=== PATIENT | female | born 1995 | race Caucasian/White ===

== ENCOUNTER 2025-06-01 08:13 | Observation (INO) | payer MEDICAID, SELFPAY ==
--- NOTE | ~2025-06-01 | US_ITS ---
EXAMINATION: US abdomen limited DATE: 06/01/2025 11:16 INDICATION: Transaminitis. Elevated lipase. Positive Ferrell sign . TECHNIQUE: Multiple grayscale and Doppler ultrasound images of the abdomen were obtained. COMPARISON: CT dated 06/01/2025 FINDINGS: No abnormal fluid collections identified in the region of the pancreas which is not clearly visualized. Liver has normal contour, with a smooth surface. There is increased parenchymal echogenicity and coarsened echotexture consistent with diffuse hepatic steatosis. No liver lesion identified. No intrahepatic biliary duct dilation suspected. Portal venous flow was seen in the hepatopetal, normal direction and has normal Doppler waveform. The gallbladder is normal in appearance. There is no cholelithiasis. The common bile duct measures 3 mm, which is normal. Sonographic Ferrell sign was reported as positive by the grinder hardboard. Visualized portion of the right kidney demonstrates normal contour and axis tube with no hydronephrosis. The proximal to mid inferior vena cava is normal. IMPRESSION: 1. Positive sonographic Ferrell's sign but with normal-appearing gallbladder without cholelithiasis and without evident pericholecystic inflammatory stranding on prior CT to suggest acute cholecystitis and this is likely secondary to acute interstitial pancreatitis which is better appreciated on prior CT. Aside from the sonographic Ferrell's on there are no CT or ultrasound findings to suggest acute cholecystitis but if there is continued clinical concern could consider HIDA scan for further evaluation. 2. Prominent diffuse hepatic steatosis. No intra or extra hepatic biliary ductal dilation. Reviewed, dictated and finalized at location A. IMPRESSION: 1. Positive sonographic Ferrell's sign but with normal-appearing gallbladder wit hout cholelithiasis and without evident pericholecystic inflammatory stranding on prior CT to suggest acute cholecystitis and this is likely secondary to acut e interstitial pancreatitis which is better appreciated on prior CT. Aside from the sonographic Ferrell's on there are no CT or ultrasound findings to suggest acute cholecystitis but if there is continued clinical concern could consider H CESARIO scan for further evaluation. 2. Prominent diffuse hepatic steatosis. No intra or extra hepatic biliary ducta l dilation.
--- NOTE | ~2025-06-01 | CT_ITS ---
CT abdomen pelvis w con Clinical History: epig pain; hx pancreatitis; mildly elev lipase . Comparison: None Technique: Axial images lung bases to symphysis pubis IV contrast information not listed in PACS Coronal, sagittal reformats CT images acquired with automatic exposure control for dose reduction DLP: 211 mGy-cm Findings: Lung bases: Clear. Visualized heart and pericardium: Unremarkable. Liver: Markedly enlarged. Steatosis. Gallbladder: Unremarkable. Spleen: Unremarkable. Pancreas: Heterogeneous parenchyma within head with decreased enhancement. Ill- defined fat planes between pancreatic head and duodenum. Small fluid. Adrenal glands: Unremarkable. Kidneys: Right kidney- No hydronephrosis. No renal stones. Left kidney- No hydronephrosis. No renal stones. Left gonadal vein/renal vein shunt. Distal esophagus/stomach: Distal esophageal wall thickening/esophagitis. Small bowel loops: Normal caliber and wall thickness. Colon: Normal caliber and wall thickness. Normal RLQ appendix. Nodes: No enlarged nodes. Peritoneum: No ascites. No free air. Soft tissue abnormality upper mid abdomen left of midline, axial image 87, possibly arising from transverse colon or distal duodenum. Urinary bladder: Wall thickening. Intraluminal gas. Uterus: Unremarkable. Adnexa: No masses. Bones: No acute bony abnormality. Soft tissues: Unremarkable. Aorta: No aneurysm or dissection. IVC: Unremarkable. Main portal vein/SMV/splenic vein: Patent. Main portal vein dilated. Dilated IMV. IMPRESSION: 1. Probable pancreatitis. Reactive duodenitis. 2. Pancreatic head mass not excluded. Possibly merely changes of pancreatitis. Recommend MRI and/or endoscopic ultrasound. 3. Soft tissue mass left mesentery, possibly duodenal or colonic diverticulum. Malignancy not excluded. Recommend CT scan with oral contrast. 4. Severe hepatomegaly, with steatosis. 5. Portal hypertension. No ascites. 6. Urinary bladder wall thickening with intraluminal gas. Worrisome for cystitis. Reviewed, dictated and finalized at location R. IMPRESSION: 1. Probable pancreatitis. Reactive duodenitis. 2. Pancreatic head mass not excluded. Possibly merely changes of pancreatitis. Recommend MRI and/or endoscopic ultrasound. 3. Soft tissue mass left mesentery, possibly duodenal or colonic diverticulum. Malignancy not excluded. Recommend CT scan with oral contrast. 4. Severe hepatomegaly, with steatosis. 5. Portal hypertension. No ascites. 6. Urinary bladder wall thickening with intraluminal gas. Worrisome for cystit is.
[2025-06-01 08:20] VITALS: BP 130/95; PULSE 89; RESP 18; TEMP 36.9; O2SAT 100
--- OUTSIDE RECORDS SUMMARY | 2025-06-01 08:25 | XMS_ITS | Patient Health Record ---
Author Organization [facility] [place] Address [address] [facility] [address] [place] [address] Care Team Providers Care Copper Flotation Operator Name Role Phone Arnulfo Gallardo Unavailable [phone] Reason For Referral No Information Plan Of Treatment No Information Insurance Providers Payer Name Payer Address Payer Phone Subscriber Number Group Number Insured Name Patient Relationship to Insured Coverage Start Date Coverage End Date [facility] [address] [place] [address] [id number] NACHO THAKUR Self - patient is the insured
--- OUTSIDE RECORDS SUMMARY | 2025-06-01 08:25 | XMS_ITS | Clinical Summary ---
Author Organization [facility] Address [address] [place] [address] Care Team Providers Care Warehouse Distribution Manager Name Role Phone Unavailable Primary Care Provider Unavailabl e Source Comments [facility],non-owned Affiliates and Associated Physician Practices is amultiple site organization consisting of ambulatory clinics and hospital sitesin [place], [place], [place] and [place]. This disclosure is being madepursuant to the Care Everywhere program and may not contain all information available regarding this patient. Last updated 18[facility] Allergies Active Allergy Reactions Criticality Noted Date Comments Sulfa Drugs Urticaria Medium 02/25/2019 Medications * Be aware that medications may not be up to date on this document. Alwaysverify current medications with the patient. Amphetamine-Dext roamphetamine (ADDERALL PO) Take by mouth once daily Active Social History Tobacco Use Types Packs/Day Years Used Date Smoking Tobacco: Some Days Cigarettes Smokeless Tobacco: Never Tobacco Cessation:Ready to Q uit: No; Counseling Given: Yes Comments:4cigs/wk Alcohol Use Standard Drinks/Week Comments Yes 7 (1 standard drink = 0.6 oz pur e alcohol) Pt is nnps Comments No Sex and Gender Information Value Date Recorded Sex Assigned at Not on file Legal Sex Female 6:42 PM CDT Gender Identity Not on file Sexual Orientation Not on file Last Filed Vital Signs Vital Sign Reading Time Taken Comments Blood Pressure 116/74 12/18/2020 3:33 PM CDT Pulse 70 06/29/2019 5:10 PM PROJECT MANAGER FINANCE Temperature 36.6 C (97.9 F) 06/29/2019 5:10 PM PROJECT MANAGER FINANCE Respiratory Rate 16 06/29/2019 5:10 PM PROJECT MANAGER FINANCE Oxygen Saturation 98% 06/29/2019 5:10 PM PROJECT MANAGER FINANCE Inhaled Oxygen Concentration - - Weight 66.2 kg (146 lb) 12/18/2020 3:33 PM CDT Height 162.6 cm (5' 4) 12/18/2020 3:33 PM CDT Body Mass Index 25.06 12/18/2020 3:33 PM CDT Plan of Treatment Health Maintenance Due Date Last Done Comments HIV SCREENING 2009 HEPATITIS C SCREENING 07/03/2012 DTAP/TDAP/TD VACCINES (1 - Tdap) 2013 HEPATITIS B VACCINE (1 of 3 - 19+ 3-dose series) 2013 HPV VACCINE (1 - 3-dose SCDM series) 2021 DEPRESSION SCREENING 08/18/2024 COVID-19 VACCINE ( - 2023-2 5 season) 2025 INFLUENZA VACCINE (#1) 2025 ZOSTER VACCINE (1 of 2) 2044 HIB VACCINE Aged Out No longer eligi ble based on patient's age to complete this topic MENINGOCOCCAL (Group B) VACC INE SHARED DECISION-MAKING Aged Out No longer eligibl e based on patient's age to complete this topic MENINGOCOCCAL GROUPS A/C/Y/W VACCINE Aged Out No longer eligible b ased on patient's age to complete this topic PNEUMOCOCCAL VACCINE Aged Out No long er eligible based on patient's age to complete this topic
[2025-06-01 08:28] LABS: BEDSIDEPREGUCG Negative (Negative)
[2025-06-01 08:32] LABS: Hematocrit 38.8 % (37.0-47.0); Hemoglobin 13.5 g/dL (12.0-15.0); Immature Granulocyte Percent A 0.5 % (0-0.5); Lymphocytes Absolute Auto 1.01 K/mm3 (0.9-3.2); Mean Corpuscular HGB Conc 34.8 g/dl (32-36); Mean Corpuscular Hemoglobin 33.9 pg (26-34); Mean Corpuscular Volume 97.5 fl (80-100); Nucleated Red Blood Cells Absolute Auto 0.000 K/mm3 (0.0-0.012); Nucleated Red Blood Cells Perc 0.0 % (0.0-0.2); Platelet Count Result 173 k/mm3 (150-375); Red Blood Count 3.98 M/mm3 (4.2-5.4); White Blood Count 6.5 K/mm3 (4.5-10.0)
[2025-06-01 08:52] LABS: Alanine Aminotransferase 144 U/L (6-35); Albumin Level 4.6 g/dL (3.5-5.1); Alkaline Phosphatase 125 U/L (38-126); Anion Gap 14 mmol/L (4-12); Aspartate Amino Transferase 286 U/L (14-36); Bilirubin,Total 3.3 mg/dL (0.2-1.3); Blood Urea Nitrogen 4 mg/dL (7-17); Calcium 9.1 mg/dL (8.4-10.2); Carbon Dioxide 25 mmol/L (22-30); Chloride 98 mmol/L (98-107); Estimated CRCL calculation 158 ml/min; Estimated Glomerular Filt Rate > 60; Glucose 137 mg/dL (65-110); Lipase 466 U/L (23-300); Potassium 3.5 mmol/L (3.4-5.0); Sodium 137 mmol/L (137-145); Total Protein 9.0 g/dL (6.3-8.2)
[2025-06-01 08:53] LABS: Add Urine Microscopic? YES; Appearance Urine Turbid (Clear); Glucose Urine UA Negative (Negative); Leukocyte Esterase Ur 2+ LEU/UL (Negative); Nitrate Urine Positive (Negative); Specific Grav Ur 1.026 (1.001-1.035)
--- NOTE | 2025-06-01 09:58 | ED_ITS ---
HPI - Abdominal Pain General Chief Complaint: Abdominal Pain Stated Complaint: ABD PAIN LIKE PRIOR PANCREATITIS Time Seen by Provider: 06/01/25 08:36 Source: patient Mode of arrival: ambulatory Limitations: no limitations History of Present Illness HPI narrative: Patient presents with epigastric abdominal pain starting last night. History of pancreatitis, last episode 2 months ago and states this feels similar. Has had nausea and vomiting. Notes 1 episode of bright red bloody emesis but not coffee grounds. Also having shoulder pain. 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 Notes that she drank more than normal recently. Denies marijuana. No chest pain. No sick contacts. LBM yesterday. No diarrhea, constipation. Still has her gallbladder. No fevers or chills but notes when she vomits she becomes diaphoretic and clammy. Related Data Allergies Allergy/AdvReac Type Severity Reaction Status Date / Time Sulfa (Sulfonamide Allergy Unknown Hives Verified 06/01/25 13:24 Antibiotics) PMFSH Past Medical History Medical History History of pancreatitis Alcohol abuse Social History Social History Smoking status: Never smoker Alcohol intake: current Drinks per week: 2 Substance use: never Lack of Transportation: No Lack of Food: Never True Current Housing: I Have Housing Concerned About Future Housing: No Difficulty Paying Gas/Electric Bills: No Difficulty Paying for Meds: No Currently Unemployed: No Education: High School Diploma/GED Difficulty w/ Childcare or Family Care: No Occupation/Education: occupation Additional occupation/education comments: 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 EYES: Non injected, non icteric ENT: Nares clear, no rhinorrhea or epistaxis. Gross auditory acuity intact. NECK: Supple. No meningismus. CHEST: Speaking in full sentences. No respiratory distress. HEART: Regular rate and rhythm. . ABDOMEN: Soft, nondistended. Epigastric and right upper quadrant tenderness to palpation although Not peritoneal. Ferrell sign positive. EXTREMITIES: Normal range of motion. No lower extremity edema. SKIN: Warm, dry, no rash. NEURO: No focal deficits. Alert and oriented. Answering questions. Following commands. Normal speech without aphasia or dysarthria. PSYCH: Normal mood and affect. Course Vital Signs Vital signs: Vital Signs Temperature 98.5 F 06/01/25 08:20 Pulse Rate 89 06/01/25 08:20 Respiratory Rate 18 06/01/25 08:20 Blood Pressure 130/95 H 06/01/25 08:20 Pulse Oximetry 100 06/01/25 08:20 Oxygen Delivery Room Air 06/01/25 08:20 Temperature 96.5 F L 06/03/25 14:00 Pulse Rate 124 H 06/03/25 14:00 Respiratory Rate 22 H 06/03/25 14:00 Blood Pressure 100/64 06/03/25 14:00 Pulse Oximetry 98 06/03/25 14:00 Oxygen Delivery Room Air 06/03/25 08:00 MDM - Abdominal Pain MDM Narrative Medical decision making narrative: Patient presents with epigastric abdominal pain. History of pancreatitis and states feels similar. Last episode was 2 months ago. 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 Still has her gallbladder. In the emergency department she is afebrile with vital signs notable for mild hypertension. test negative. Lipase is mildly elevated. Not greater than 3 times the upper limit of normal though she reports pain feeling like prior pancreatitis, classically described. She has hyperbilirubinemia and transaminitis. CT and right upper quadrant ultrasound ordered given the tenderness on palpation and Ferrell sign positive. In addition, analgesic medication , famotidine, ondansetron, and IV fluids ordered. Predominantly indirect hyperbilirubinemia Ddx indirect hyperbilirubinemia Over production of bilirubin (hemolytic anemia), reduced uptake (cirrhosis or congestive hepatopathy), impaired conjugation, biliary obstruction, hereditary disease (Gilbert syndrome, Yani-Sam syndrome, Crigler-Char syndrome), medication side effect (allopurinol, anabolic steroids, antibiotics, antimalarials, etc.) Urinalysis concerning for urinary tract infection. Culture from today in process but no previous for comparison to guide antibiotic therapy. Ceftriaxone given for this as well as prevention given the small volume upper GI bleed (gastritis likely). UDS positive for cocaine metabolites. She adamantly refuses this. She notes that she had taken a muscle relaxer approximately 2 months ago and after that had a urine drug screen that was positive for benzodiazepines which was surprising and confusing to her and she asked boyfriend at that time. However, she denies any use of any recreational drugs or taking any other medications in the interim. CT as below. US as below. Discussed patient with extension course coordinator hospitalist Dr Cortes who accepts admission. No telemetry needs. Differential Diagnosis Differential diagnosis: Likely abdominal pain, constipation, diverticulitis, endometriosis, gastroenteritis, pancreatitis and other (Considered spectrum of biliary etiology including biliary colic/cholecystitis, choledocholithiasis/cholangitis; gastritis) Lab Data Attestation: I reviewed the patient's lab results. 06/03/25 06:00 06/03/25 06:00 Labs: Lab Results 06/01/25 06/01/25 06/01/25 Range/Units 08:24 08:26 10:12 WBC 6.5 (4.5-10.0) K/mm3 RBC 3.98 L (4.2-5.4) M/mm3 Hgb 13.5 (12.0-15.0) g/dL Hct 38.8 (37.0-47.0) % MCV 97.5 (80-100) fl MCH 33.9 (26-34) pg MCHC 34.8 (32-36) g/dl RDW 12.5 (11.5-14.5) % Plt Count 173 (150-375) k/mm3 MPV 9.5 (7.4-10.4) fl Immature Gran % (Auto) 0.5 (0-0.5) % Neut % (Auto) 75.1 H (45.5-73.1) % Lymph % (Auto) 15.6 L (18.3-44.2) % [place] % (Auto) 7.7 (2.6-8.5) % Eos % (Auto) 0.8 (0-4.4) % Baso % (Auto) 0.3 (0.2-1.2) % Lymph # (Auto) 1.01 (0.9-3.2) K/mm3 [place] # (Auto) 0.5 (0.1-0.6) K/mm3 Eos # (Auto) 0.1 (0-0.3) K/mm3 Baso # (Auto) 0.0 (0.0-0.1) K/mm3 Abs Immat Gran (auto) 0.03 (0.00-0.031) K/mm3 Absolute Neuts (auto) 4.9 (1.3-6.7) K/mm3 Absolute Nucleated RBC 0.000 (0.0-0.012) K/mm3 Nucleated RBC % 0.0 (0.0-0.2) % PT 15.3 H (11.1-14.7) Seconds INR 1.2 APTT 28.7 (22.3-36.8) Seconds Sodium 137 (137-145) mmol/L Potassium 3.5 (3.4-5.0) mmol/L Chloride 98 (98-107) mmol/L Carbon Dioxide 25 (22-30) mmol/L Anion Gap 14 H (4-12) mmol/L BUN 4 L (7-17) mg/dL Creatinine 0.36 L (0.7-1.0) mg/dL Estim Creat Clear Calc 158 ml/min Estimated GFR > 60 (59 - ) Glucose 137 H (65-110) mg/dL Calcium 9.1 (8.4-10.2) mg/dL Total Bilirubin 3.3 H (0.2-1.3) mg/dL Direct Bilirubin 0.0 (0-0.3) mg/dL Indirect Bilirubin 2.0 H (0-1.1) mg/dL AST 286 H (14-36) U/L ALT 144 H (6-35) U/L Alkaline Phosphatase 125 (38-126) U/L Total Protein 9.0 H (6.3-8.2) g/dL Albumin 4.6 (3.5-5.1) g/dL Lipase 466 H (23-300) U/L Urine Color Dark yellow (Yellow) Urine Appearance Turbid H (Clear) Urine pH 7.0 (5.0-9.0) Ur Specific [place] 1.026 (1.001-1.035) Urine Protein 1+ H (Negative) mg/dL Urine Glucose (UA) Negative (Negative) mg/dL Urine Ketones 1+ H (Negative) mg/dL Ur Blood (Man) Negative (Negative) Urine Nitrate Positive H (Negative) Urine Bilirubin 2+ H (Negative) Urine Urobilinogen 4.0 H (<2.0) mg/dL Leukocyte Esterase Rfl 2+ H (Negative) YVETTE/UL Urine RBC 0-2 (0-2) /hpf Urine WBC 21-50 H (0-3) /hpf Ur Squamous Epith Cells Few (Few) /hpf Urine Bacteria 4+ /hpf Urine Casts 6-10 Urine Mucus Present /lpf POC Urine HCG, Qual Negative (Negative) Urine Opiates Screen Negative (Negative) Urine Methadone Screen Negative (Negative) Acetaminophen < 10 L (10-30) ug/mL Ur Barbiturates Screen Negative (Negative) Ur Phencyclidine Scrn Negative (Negative) Ur Amphetamine Screen Negative (Negative) U Benzodiazepines Scrn Negative (Negative) Urine Cocaine Screen Positive A (Negative) U Cannabinoids Screen Negative (Negative) Ethyl Alcohol < 10 (<10) mg/dL Imaging Data Radiologist's impression: ITS Impressions Abdomen/Pelvis CT 06/01/25 10:22 IMPRESSION: 1. Probable pancreatitis. Reactive duodenitis. 2. Pancreatic head mass not excluded. Possibly merely changes of pancreatitis. Recommend MRI and/or endoscopic ultrasound. 3. Soft tissue mass left mesentery, possibly duodenal or colonic diverticulum. Malignancy not excluded. Recommend CT scan with oral contrast. 4. Severe hepatomegaly, with steatosis. 5. Portal hypertension. No ascites. 6. Urinary bladder wall thickening with intraluminal gas. Worrisome for cystitis. Abdomen Ultrasound 06/01/25 11:17 IMPRESSION: 1. Positive sonographic Ferrell's sign but with normal-appearing gallbladder without cholelithiasis and without evident pericholecystic inflammatory stranding on prior CT to suggest acute cholecystitis and this is likely secondary to acute interstitial pancreatitis which is better appreciated on prior CT. Aside from the sonographic Ferrell's on there are no CT or ultrasound findings to suggest acute cholecystitis but if there is continued clinical concern could consider HIDA scan for further evaluation. 2. Prominent diffuse hepatic steatosis. No intra or extra hepatic biliary ductal dilation. Discharge Plan Discharge Clinical Impression: Epigastric abdominal pain, Right upper quadrant abdominal pain with positive Ferrell Sign, Transaminitis, Duodenitis, Mesenteric mass, Indirect hyperbilirubinemia, Hepatomegaly, Hepatic steatosis, Hypertension, portal, Cystitis UTI (urinary tract infection) Qualifiers: Urinary tract infection type: acute cystitis Hematuria presence: without hematuria Qualified Code(s): N30.00 - Acute cystitis without hematuria Pancreatitis Qualifiers: Chronicity: acute Pancreatitis type: alcohol induced Acute pancreatitis complication: no infection or necrosis Qualified Code(s): K85.20 - Alcohol induced acute pancreatitis without necrosis or infection Patient Disposition: Still a Patient Condition: Stable Time of Disposition: 11:59
[2025-06-01 10:43] LABS: Acetaminophen < 10 ug/mL (10-30)
[2025-06-01 10:48] LABS: INR 1.2; Prothrombin Time 15.3 Seconds (11.1-14.7)
[2025-06-01 10:49] LABS: Partial Thromboplastin Time 28.7 Seconds (22.3-36.8)
[2025-06-01] MEDS: MORPHINE SULFATE (*CRX) 4 MG/ML INJ IV PUSH (10:50)
[2025-06-01] MEDS: FAMOTIDINE 20 MG/2 ML VIAL IV PUSH (10:50)
[2025-06-01] MEDS: ONDANSETRON INJ 4 MG/2 ML VIAL IV PUSH ×2 (10:50→14:30)
[2025-06-01] MEDS: SODIUM CHLORIDE 0.9% IV 1,000 ML 999 ML IV CONT ×2 (10:50→12:29)
[2025-06-01 11:18] LABS: Cannabinoid Screen Urine Negative (Negative)
[2025-06-01] MEDS: HYDROmorphone HCL INJ (*CRX) 1 MG/ML SYR 0.5 MG IV PUSH ×3 (12:03→20:06)
[2025-06-01] MEDS: PANTOPRAZOLE SODIUM IV 40 MG VIAL 80 MG IV PUSH (12:05)
[2025-06-01] MEDS: cefTRIAXone 1 GM in SODIUM CHLORIDE 0.9% IV 50 ML 100 ML IVPB (12:29)
[2025-06-01 12:36] VITALS: BP 92/76; PULSE 82; RESP 18; O2SAT 100
[2025-06-01 13:09] VITALS: BMI 23.1
--- NOTE | 2025-06-01 13:27 | ADMGEN ---
This patient, Beth Ty, was admitted to [facility] Surg Room 314-01. Patient/family oriented to hospital policies and general routines including ID bracelet, bed and alarms, visiting hours, pain management, procedures, bathroom and other care routines, personal items, smoking policy, room service/diet, and visiting hours. Information on how to activate the Rapid Response Team has been discussed. Patient/Family are encouraged to report perceived risks to care and to ask questions if they do not understand what they are told or what they should do.
--- NOTE | 2025-06-01 13:44 | P.HP_ITS ---
H&P: HPI History of Present Illness Date/Time: 06/01/25 13:44 Chief Complaint: Pancreatitis Narrative: 29-year-old female with a past medical history of alcohol abuse presented to the ED on 06/01/2025 with complaints of abdominal pain that feels like pancreatitis. The patient has history of pancreatitis and was admitted 2 months ago at [facility] for acute pancreatitis. Patient reports pain and vomiting started on 05/31. Reports last drink was on Wednesday 05/30 but had spent the weekend drinking heavily with friends. She describes her pain as a constant aching pain in the epigastric area. State she vomited in the ED due to pain. Patient denies fevers, chills, cough, and chest pain. Patient denies history of withdrawal and has had no past admissions to a substance abuse program. Initial vital signs in the ED significant for slight hypertension at 130/95 Labs significant for hyperbilirubinemia, transaminitis, and elevated lipase at 466. PT slightly elevated at 15.3, anion gap 14, BUN 4 with creatinine 0.36. Glucose 137 UA with evidence of infection. 1+ protein, 1+ ketones, positive nitrate, 2+ leukocyte esterase, WBC 20 1-50 Abdominal US positive sonographic Ferrell's sign but with normal-appearing gallbladder without cholelithiasis. No no ultrasound findings to suggest acute cholecystitis. Prominent diffuse hepatic stenosis Abdomen pelvic CT with probable pancreatitis and reactive duodenitis. Pancreatic head mass not excluded but possibly changes of pancreatitis. Soft tissue mass left mesentery, possibly duodenal colonic diverticulum. Severe hepatomegaly with stenosis. Portal hypertension with no ascites. Urinary bladder wall thickening with intraluminal gas, consistent with cystitis. UDS positive for cocaine. Patient adamantly denies cocaine or any other recreational drug use. Review of Systems Review of Systems: All systems reviewed & are unremarkable except as noted in HPI and below PMFSH Past Medical History Medical History Alcohol abuse Social History Social History Smoking status: Never smoker Alcohol intake: current Drinks per week: 2 Substance use: never Lack of Transportation: No Lack of Food: Never True Current Housing: I Have Housing Concerned About Future Housing: No Difficulty Paying Gas/Electric Bills: No Difficulty Paying for Meds: No Currently Unemployed: No Education: High School Diploma/GED Difficulty w/ Childcare or Family Care: No Spiritual care concerns: No Meds Home Medications and Allergies Home Medications ?Medication ?Instructions ?Recorded ?Confirmed ?Type No Home Medications 06/01/25 06/01/25 H istory Allergies Allergy/AdvReac Type Severity Reaction Status Date / Time Sulfa (Sulfonamide Allergy Unknown Hives Verified 06/01/25 13:24 Antibiotics) Vital Signs Vital Signs - 24 hr 06/01/25 08:20 06/01/25 12:36 Temperature 98.5 F Pulse Rate 89 82 Respiratory Rate 18 18 Blood Pressure 130/95 H 92/76 L Pulse Oximetry 100 100 Oxygen Delivery Room Air Exam 2 Narrative: GENERAL: non-toxic appearing, in no acute distress. HEAD: Normocephalic, atraumatic. EYES: Conjunctivae clear. NOSE: Normal no drainage. THROAT: Pharynx clear, no exudate. NECK: Trachea midline. Thyroid not palpable. No adenopathy, no masses. RESPIRATORY: Airway patent, respirations nonlabored. CTA. CARDIOVASCULAR: Regular rate and rhythm. Peripheral pulses palpable BREASTS: Defer GASTROINTESTINAL: Nondistended. Tenderness to the right upper quadrant with palpation. Positive Ferrell sign GENITOURINARY: Defer MUSCULOSKELETAL: Moves all extremities. No gross deformities. No calf tenderness. SKIN: Warm, dry, normal color. NEURO: A&O X4. Speech clear PSYCHIATRIC: Normal interaction H&P: Results Labs Labs: Short CBC 06/01/25 Range/Units 08:26 WBC 6.5 (4.5-10.0) K/mm3 Hgb 13.5 (12.0-15.0) g/dL Hct 38.8 (37.0-47.0) % Plt Count 173 (150-375) k/mm3 [facility] 06/01/25 08:26 Sodium 137 Potassium 3.5 Chloride 98 Carbon Dioxide 25 BUN 4 L Creatinine 0.36 L Glucose 137 H Calcium 9.1 Liver Function 06/01/25 Range/Units 08:26 Total Bilirubin 3.3 H (0.2-1.3) mg/dL Direct Bilirubin 0.0 (0-0.3) mg/dL AST 286 H (14-36) U/L ALT 144 H (6-35) U/L Alkaline Phosphatase 125 (38-126) U/L Albumin 4.6 (3.5-5.1) g/dL Urine 06/01/25 Range/Units 08:26 Urine Color Dark yellow (Yellow) Urine Appearance Turbid H (Clear) Urine pH 7.0 (5.0-9.0) Ur Specific [place] 1.026 (1.001-1.035) Urine Protein 1+ H (Negative) mg/dL Urine Glucose (UA) Negative (Negative) mg/dL Assessment and Plan Assessment and plan (1) Pancreatitis: Qualifiers: Acute pancreatitis complication: no infection or necrosis Chronicity: acute Pancreatitis type: alcohol induced Qualified Code(s): K85.20 - Alcohol induced acute pancreatitis without necrosis or infection Code(s): K85.90 - Acute pancreatitis without necrosis or infection, unspecified Status: Acute Assessment and Plan: Patient to the ED with constant, achy abdominal pain and vomiting she compares to previous episodes of pancreatitis. Lipase 466. Abdomen pelvic CT with probable pancreatitis and reactive duodenitis, soft tissue mass left mesentery, possibly duodenal colonic diverticulum. In ED treated with 2 L NS bolus, 4 mg morphine, 0.5 mg hydromorphone, pantoprazole, Pepcid, and Zofran -LR at 100 mL/hour for 2 L -failed clear liquid trial. Currently NPO. Advance as tolerated -Zofran first-line for nausea. Metoclopramide 10 mg second-line nausea -hydromorphone p.r.n. (2) UTI (urinary tract infection): Qualifiers: Hematuria presence: without hematuria Urinary tract infection type: acute cystitis Qualified Code(s): N30.00 - Acute cystitis without hematuria Code(s): N39.0 - Urinary tract infection, site not specified Status: Acute Assessment and Plan: UA with evidence of infection. 1+ protein, 1+ ketones, positive nitrate, 2+ leukocyte esterase, WBC 20 1-50. Patient denies any urinary symptoms. 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 Reports last drink was on Wednesday 05/30 but had spent the weekend drinking heavily with friends. - CIWA protocol in place Librium prn Diazepam p.r.n. seizure precautions neurochecks Q4H - antiemetics PRN -care coordination consult placed (4) Hepatic steatosis: Code(s): K76.0 - Fatty (change of) liver, not elsewhere classified Status: Chronic Assessment and Plan: Abdominal ultrasound with prominent diffuse hepatic stenosis. -monitor hepatic function -limit hepatotoxic medications (5) Duodenitis: Code(s): K29.80 - Duodenitis without bleeding Status: Acute Assessment and Plan: Abdominal pelvic CT with reactive duodenitis. -Protonix daily Plan Diet: NPO GI prophylaxis: Pantoprazole DVT prophylaxis: SCDs lines/drains: PIV Fluids: 2 L NS bolus. LR at 100 mL/hour for 2 L Code status: Full Quality VTE Prophylaxis VTE prophylaxis: mechanical ordered Hospitalist [facility] Advance Care Plan I have confirmed that the patient's Advanced Care Plan is present, code status is documented, or surrogate decision maker is listed in patient medical record.: Yes Medication Reconciliation I have utilized all available resources to obtain, update and review the patients current medications (includes all prescriptions, OTC, herbals, cannabis, and nutritional supplements).: Yes
[2025-06-01 14:00] VITALS: BP 110/74; PULSE 65; RESP 16; TEMP 36.8; O2SAT 99
[2025-06-01] MEDS: SODIUM CHLORIDE 0.9% IV 1,000 ML 125 ML IV CONT (14:32)
[2025-06-01] MEDS: METOCLOPRAMIDE HCL INJ 10 MG/2 ML VIAL IV PUSH (18:03)
[2025-06-01] MEDS: LACTATED RINGERS 1,000 ML 100 ML IV CONT ×2 (18:38→22:46)
[2025-06-01 21:41] VITALS: BP 110/71; PULSE 68; RESP 16; TEMP 36.9; O2SAT 98
[2025-06-02] MEDS: HYDROmorphone HCL INJ (*CRX) 1 MG/ML SYR 0.2 MG IV PUSH (00:29)
[2025-06-02 05:49] LABS: Hematocrit 30.1 % (37.0-47.0); Hemoglobin 10.1 g/dL (12.0-15.0); Immature Granulocyte Percent A 0.2 % (0-0.5); Lymphocytes Absolute Auto 1.43 K/mm3 (0.9-3.2); Mean Corpuscular HGB Conc 33.6 g/dl (32-36); Mean Corpuscular Hemoglobin 34.0 pg (26-34); Mean Corpuscular Volume 101.3 fl (80-100); Nucleated Red Blood Cells Absolute Auto 0.000 K/mm3 (0.0-0.012); Nucleated Red Blood Cells Perc 0.0 % (0.0-0.2); Platelet Count Result 106 k/mm3 (150-375); Red Blood Count 2.97 M/mm3 (4.2-5.4); White Blood Count 4.9 K/mm3 (4.5-10.0)
[2025-06-02 06:00] VITALS: BP 100/68; PULSE 75; RESP 16; TEMP 37; O2SAT 98
[2025-06-02 06:17] LABS: Alanine Aminotransferase 78 U/L (6-35); Albumin Level 3.3 g/dL (3.5-5.1); Alkaline Phosphatase 72 U/L (38-126); Anion Gap 7 mmol/L (4-12); Aspartate Amino Transferase 114 U/L (14-36); Bilirubin,Total 2.1 mg/dL (0.2-1.3); Blood Urea Nitrogen 2 mg/dL (7-17); Calcium 7.7 mg/dL (8.4-10.2); Carbon Dioxide 25 mmol/L (22-30); Chloride 103 mmol/L (98-107); Estimated CRCL calculation 162 ml/min; Estimated Glomerular Filt Rate > 60; Glucose 84 mg/dL (65-110); Lipase 222 U/L (23-300); Magnesium 1.2 mg/dL (1.6-2.3); Potassium 3.2 mmol/L (3.4-5.0); Sodium 135 mmol/L (137-145); Total Protein 6.4 g/dL (6.3-8.2)
--- NOTE | 2025-06-02 08:24 | P.PNIM_ITS ---
Progress Note: A&P Assessment and Plan (1) Pancreatitis: Qualifiers: Acute pancreatitis complication: no infection or necrosis Chronicity: acute Pancreatitis type: alcohol induced Qualified Code(s): K85.20 - Alcohol induced acute pancreatitis without necrosis or infection Code(s): K85.90 - Acute pancreatitis without necrosis or infection, unspecified Status: Acute Assessment and Plan: Patient to the ED with constant, achy abdominal pain and vomiting she compares to previous episodes of pancreatitis. In ED treated with 2 L NS bolus, 4 mg morphine, 0.5 mg hydromorphone, pantoprazole, Pepcid, and Zofran - Lipase 466 on admission, back to WNL - Abdomen pelvic CT with probable pancreatitis and reactive duodenitis, Pancreatic head mass not excluded. Possibly merely changes of pancreatitis. - Abdomen US showed no abnormal fluid collections identified in the region of the pancreas which is not clearly visualized. - LR at 100 mL/hour for 2 L - Diet: clear liquis - Zofran first-line for nausea. Metoclopramide 10 mg second-line nausea - Analgesics: norco 5-325 mg q4h, dilaudid 0.5mg IV q3h Lipase has returned to WNL. Will attempt a clear liquid trial and advance as tolerated. (2) UTI (urinary tract infection): Qualifiers: Hematuria presence: without hematuria Urinary tract infection type: acute cystitis Qualified Code(s): N30.00 - Acute cystitis without hematuria Code(s): N39.0 - Urinary tract infection, site not specified Status: Acute Assessment and Plan: Endorsing dysuria and burning sensation with urination on admission. 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 Reports last drink was on Wednesday 05/30 but had spent the weekend drinking heavily with friends. Currently drinks about 2-3 shots twice a week, primarily on the weekend Denies a history of withdrawal - [facility] protocol in place - Diazepam p.r.n. - multivitamin, folic acid, and thiamine - seizure precautions - antiemetics PRN - care coordination consult placed (4) Hepatic steatosis: Code(s): K76.0 - Fatty (change of) liver, not elsewhere classified Status: Chronic Assessment and Plan: Abdominal ultrasound with prominent diffuse hepatic stenosis. - LFTs elevated but downtrending since admission - monitor hepatic function - limit hepatotoxic medications (5) Duodenitis: Code(s): K29.80 - Duodenitis without bleeding Status: Acute Assessment and Plan: Abdominal pelvic CT with reactive duodenitis. -Protonix daily Time Spent With Patient Time with patient: 25 - 35 minutes Subjective Date/time seen: 06/02/25 08:24 Interval history: 29-year-old female with a past medical history of alcohol abuse presented to the hospital with complaints of abdominal pain that feels like pancreatitis. Patient is pleasant sitting up comfortably in bed. She states that she feels much better compared to yesterday. She is tolerating ice chips well and is wanting to advance her diet. She denies any nausea/vomiting at this time. She does endorse slight epigastric tenderness but again notes that this is drastically improved since admission. She has no other complaints denying chest pain, shortness a breath, palpitations. Review of Systems Review of Systems: All systems reviewed & are unremarkable except as noted in HPI and below Exam Narrative: AF HR 75 RR 16 Spo2 98 BP 100/68 General: female in no acute respiratory distress who is nontoxic appearing, sitting up in bed. HEENT: Normocephalic. Atraumatic. Extraocular movement intact. Sclera clear and anicteric. No facial asymmetry. Chest: Lungs are clear to auscultation bilaterally. No wheezes or crackles. CV: Heart was regular rate and rhythm. Abd: Abdomen was soft. Slight tenderness to epigastric region. Nondistended. Positive bowel sounds. Ext: No clubbing, cyanosis, or edema. DP pulses bilaterally. Neuro: Patient is alert. Speech is clear. Objective Data Vital Signs Vital Signs: Vital Signs - 24 hr 06/01/25 12:36 06/01/25 14:00 06/01/25 21:41 Temperature 98.2 F 98.4 F Pulse Rate 82 65 68 Respiratory Rate 18 16 16 Blood Pressure 92/76 L 110/74 110/71 Pulse Oximetry 100 99 98 06/02/25 06:00 Temperature 98.6 F Pulse Rate 75 Respiratory Rate 16 Blood Pressure 100/68 Pulse Oximetry 98 Intake/Output Intake/Output: Intake & Output 05/30/25 05/31/25 06/01/25 06/02/25 23:59 23:59 23:59 23:59 Intake Total 1531.3 500 Balance 1531.3 500 Meds/Results Medications: Active Medications Generic Name Dose Route Start Last Admin Trade Name Freq PRN Reason Stop Dose Admin Acetaminophen 650 mg 06/01/25 12:00 Acetaminophen 325 Mg Tablet PO Q4H PRN Mild Pain (1-3) or Fever Chlordiazepoxide HCl 10 mg 06/01/25 18:47 Chlordiazepoxide (*Crx) 10 Mg Capsule PO Q8H PRN CIWA 8-14 Diazepam 5 mg 06/01/25 18:49 Diazepam Inj (*Crx) 10 Mg/2 Ml Syringe IV PUSH Q4HR PRN CIWA > 15 Hydromorphone HCl 0.5 mg 06/01/25 13:56 06/01/25 20:06 Hydromorphone Hcl Inj (*Crx) 1 Mg/Ml Syr IV PUSH 0.5 mg Q3H PRN Administration Pain Rated 7-10 Hydromorphone HCl 0.2 mg 06/01/25 14:00 06/02/25 00:29 Hydromorphone Hcl Inj (*Crx) 1 Mg/Ml Syr IV PUSH 0.2 mg Q3H PRN Administration Pain Rated 4-6 Lactated Ringer's 1,000 mls @ 100 mls/hr 06/01/25 13:55 06/01/25 22:46 Lr - Lactated Ringers Iv IV CONT 06/02/25 09:54 100 mls/hr .Q10H JUAN Administration Ceftriaxone Sodium 1 gm/ 50 mls @ 100 mls/hr 06/02/25 12:00 Sodium Chloride IVPB Q24H JUAN Metoclopramide HCl 10 mg 06/01/25 17:39 06/01/25 18:03 Metoclopramide Hcl Inj 10 Mg/2 Ml Vial IV PUSH 10 mg Q6HR PRN Administration Nausea And Vomiting Multivitamins/Calcium 1 tablet 06/02/25 09:00 Therapeutic Multivitamins/Minerals Tab (*Bkc) PO DAILY JUAN Ondansetron HCl 4 mg 10/15/25 12:00 06/01/25 14:30 Ondansetron Inj 4 Mg/2 Ml Vial IV PUSH 4 mg Q4H PRN Administration Nausea Pantoprazole Sodium 40 mg 06/02/25 09:00 Pantoprazole 40 Mg Tablet PO QAM [facility] Radiology Results: ITS Impressions Abdomen/Pelvis CT 06/01/25 10:22 IMPRESSION: 1. Probable pancreatitis. Reactive duodenitis. 2. Pancreatic head mass not excluded. Possibly merely changes of pancreatitis. Recommend MRI and/or endoscopic ultrasound. 3. Soft tissue mass left mesentery, possibly duodenal or colonic diverticulum. Malignancy not excluded. Recommend CT scan with oral contrast. 4. Severe hepatomegaly, with steatosis. 5. Portal hypertension. No ascites. 6. Urinary bladder wall thickening with intraluminal gas. Worrisome for cystit is. Abdomen Ultrasound 06/01/25 11:17 IMPRESSION: 1. Positive sonographic Ferrell's sign but with normal-appearing gallbladder without cholelithiasis and without evident pericholecystic inflammatory stranding on prior CT to suggest acute cholecystitis and this is likely secondary to acute interstitial pancreatitis which is better appreciated on prior CT. Aside from the sonographic Ferrell's on there are no CT or ultrasound findings to suggest acute cholecystitis but if there is continued clinical concern could consider HIDA scan for further evaluation. 2. Prominent diffuse hepatic steatosis. No intra or extra hepatic biliary ductal dilation. Labs Labs: Laboratory Results - last 24 hr 06/01/25 06/01/25 06/01/25 08:24 08:26 10:12 WBC 6.5 RBC 3.98 L Hgb 13.5 Hct 38.8 MCV 97.5 MCH 33.9 MCHC 34.8 RDW 12.5 Plt Count 173 MPV 9.5 Immature Gran % (Auto) 0.5 Neut % (Auto) 75.1 H Lymph % (Auto) 15.6 L [place] % (Auto) 7.7 Eos % (Auto) 0.8 Baso % (Auto) 0.3 Lymph # (Auto) 1.01 [place] # (Auto) 0.5 Eos # (Auto) 0.1 Baso # (Auto) 0.0 Abs Immat Gran (auto) 0.03 Absolute Neuts (auto) 4.9 Absolute Nucleated RBC 0.000 Nucleated RBC % 0.0 PT 15.3 H INR 1.2 APTT 28.7 Sodium 137 Potassium 3.5 Chloride 98 Carbon Dioxide 25 Anion Gap 14 H BUN 4 L Creatinine 0.36 L Estim Creat Clear Calc 158 Estimated GFR > 60 Glucose 137 H POC Capillary Glucose Calcium 9.1 Phosphorus Magnesium Total Bilirubin 3.3 H Direct Bilirubin 0.0 Indirect Bilirubin 2.0 H AST 286 H ALT 144 H Alkaline Phosphatase 125 Total Protein 9.0 H Albumin 4.6 Lipase 466 H Urine Color Dark yellow Urine Appearance Turbid H Urine pH 7.0 Ur Specific [place] 1.026 Urine Protein 1+ H Urine Glucose (UA) Negative Urine Ketones 1+ H Ur Blood (Man) Negative Urine Nitrate Positive H Urine Bilirubin 2+ H Urine Urobilinogen 4.0 H Leukocyte Esterase Rfl 2+ H Urine RBC 0-2 Urine WBC 21-50 H Ur Squamous Epith Cells Few Urine Bacteria 4+ Urine Casts 6-10 Urine Mucus Present POC Urine HCG, Qual Negative Urine Opiates Screen Negative Urine Methadone Screen Negative Acetaminophen < 10 L Ur Barbiturates Screen Negative Ur Phencyclidine Scrn Negative Ur Amphetamine Screen Negative U Benzodiazepines Scrn Negative Urine Cocaine Screen Positive A U Cannabinoids Screen Negative Ethyl Alcohol < 10 06/01/25 06/02/25 18:05 05:10 WBC 4.9 RBC 2.97 L Hgb 10.1 L D Hct 30.1 L MCV 101.3 H MCH 34.0 MCHC 33.6 RDW 12.8 Plt Count 106 L MPV 10.0 Immature Gran % (Auto) 0.2 Neut % (Auto) 60.6 Lymph % (Auto) 29.1 [place] % (Auto) 7.3 Eos % (Auto) 2.4 Baso % (Auto) 0.4 Lymph # (Auto) 1.43 [place] # (Auto) 0.4 Eos # (Auto) 0.1 Baso # (Auto) 0.0 Abs Immat Gran (auto) 0.01 Absolute Neuts (auto) 3.0 Absolute Nucleated RBC 0.000 Nucleated RBC % 0.0 PT INR APTT Sodium 135 L Potassium 3.2 L Chloride 103 Carbon Dioxide 25 Anion Gap 7 BUN 2 L Creatinine 0.35 L Estim Creat Clear Calc 162 Estimated GFR > 60 Glucose 84 POC Capillary Glucose 92 Calcium 7.7 L Phosphorus 2.8 Magnesium 1.2 L Total Bilirubin 2.1 H Direct Bilirubin 0.0 Indirect Bilirubin AST 114 H ALT 78 H Alkaline Phosphatase 72 Total Protein 6.4 Albumin 3.3 L Lipase 222 Urine Color Urine Appearance Urine pH Ur Specific [place] Urine Protein Urine Glucose (UA) Urine Ketones Ur Blood (Man) Urine Nitrate Urine Bilirubin Urine Urobilinogen Leukocyte Esterase Rfl Urine RBC Urine WBC Ur Squamous Epith Cells Urine Bacteria Urine Casts Urine Mucus POC Urine HCG, Qual Urine Opiates Screen Urine Methadone Screen Acetaminophen Ur Barbiturates Screen Ur Phencyclidine Scrn Ur Amphetamine Screen U Benzodiazepines Scrn Urine Cocaine Screen U Cannabinoids Screen Ethyl Alcohol Quality VTE Prophylaxis VTE prophylaxis: mechanical ordered
[2025-06-02] MEDS: HYDROmorphone HCL INJ (*CRX) 1 MG/ML SYR 0.5 MG IV PUSH (08:47)
[2025-06-02] MEDS: PANTOPRAZOLE 40 MG TABLET PO (08:48)
[2025-06-02] MEDS: THERAPEUTIC MULTIVITAMINS/MINERALS TAB (*BKC) 1 TABLET PO (08:48)
[2025-06-02 08:50] VITALS: O2SAT 98
[2025-06-02] MEDS: THIAMINE HCL 100 MG TABLET PO (09:55)
[2025-06-02] MEDS: FOLIC ACID 1 MG TABLET PO (09:55)
[2025-06-02] MEDS: POTASSIUM CHLORIDE 20 MEQ ER TABLET 40 MEQ PO (09:56)
[2025-06-02] MEDS: cefTRIAXone 1 GM in SODIUM CHLORIDE 0.9% IV 50 ML 100 ML IVPB (12:33)
[2025-06-02 14:00] VITALS: BP 111/95; PULSE 86; RESP 17; TEMP 36; O2SAT 100
[2025-06-02 20:20] VITALS: BP 112/95; PULSE 84; RESP 20; TEMP 36.6; O2SAT 100
[2025-06-02] MEDS: HYDROcodone/acetaminophen (*CRX) 5-325 MG TABLET 1 TAB PO (21:11)
[2025-06-03 04:30] VITALS: BP 94/62; PULSE 71; RESP 18; TEMP 36.2; O2SAT 98
[2025-06-03 06:19] LABS: Hematocrit 33.1 % (37.0-47.0); Hemoglobin 11.2 g/dL (12.0-15.0); Immature Platelet Fraction Pct 4.5 % (0.9-11.2); Mean Corpuscular HGB Conc 33.8 g/dl (32-36); Mean Corpuscular Hemoglobin 33.9 pg (26-34); Mean Corpuscular Volume 100.3 fl (80-100); Platelet Count Result 136 k/mm3 (150-375); Red Blood Count 3.30 M/mm3 (4.2-5.4); White Blood Count 6.0 K/mm3 (4.5-10.0)
[2025-06-03 06:41] LABS: Alanine Aminotransferase 75 U/L (6-35); Albumin Level 3.9 g/dL (3.5-5.1); Alkaline Phosphatase 90 U/L (38-126); Anion Gap 7 mmol/L (4-12); Aspartate Amino Transferase 116 U/L (14-36); Bilirubin,Total 1.8 mg/dL (0.2-1.3); Blood Urea Nitrogen 3 mg/dL (7-17); Calcium 9.0 mg/dL (8.4-10.2); Carbon Dioxide 27 mmol/L (22-30); Chloride 102 mmol/L (98-107); Estimated CRCL calculation 147 ml/min; Estimated Glomerular Filt Rate > 60; Glucose 102 mg/dL (65-110); Potassium 3.5 mmol/L (3.4-5.0); Sodium 136 mmol/L (137-145); Total Protein 7.4 g/dL (6.3-8.2)
[2025-06-03] MEDS: FOLIC ACID 1 MG TABLET PO (08:29)
[2025-06-03] MEDS: THERAPEUTIC MULTIVITAMINS/MINERALS TAB (*BKC) 1 TABLET PO (08:29)
[2025-06-03] MEDS: THIAMINE HCL 100 MG TABLET PO (08:29)
[2025-06-03] MEDS: PANTOPRAZOLE 40 MG TABLET PO (08:29)
[2025-06-03] MEDS: HYDROcodone/acetaminophen (*CRX) 5-325 MG TABLET 1 TAB PO (09:52)
[2025-06-03] MEDS: cefTRIAXone 1 GM in SODIUM CHLORIDE 0.9% IV 50 ML 100 ML IVPB (11:02)
--- NOTE | 2025-06-03 13:51 | P.DS_ITS ---
DS: Admitting Diagnosis Discharge Date 06/03/2025 Admitting Diagnosis pancreatitis uti alcohol abuse hepatic steatosis duodenitis DS: Discharge Diagnosis Discharge Diagnosis (1) Pancreatitis: Qualifiers: Acute pancreatitis complication: no infection or necrosis Chronicity: acute Pancreatitis type: alcohol induced Qualified Code(s): K85.20 - Alcohol induced acute pancreatitis without necrosis or infection Code(s): K85.90 - Acute pancreatitis without necrosis or infection, unspecified Status: Acute (2) UTI (urinary tract infection): Qualifiers: Hematuria presence: without hematuria Urinary tract infection type: acute cystitis Qualified Code(s): N30.00 - Acute cystitis without hematuria Code(s): N39.0 - Urinary tract infection, site not specified Status: Acute (3) Alcohol abuse: Code(s): F10.10 - Alcohol abuse, uncomplicated Status: Chronic (4) Hepatic steatosis: Code(s): K76.0 - Fatty (change of) liver, not elsewhere classified Status: Chronic (5) Duodenitis: Code(s): K29.80 - Duodenitis without bleeding Status: Acute DS: Summary Hospital Course Reason for hospitalization: pancreatitis uti alcohol abuse hepatic steatosis duodenitis Hospital Course: 29-year-old female with a past medical history of alcohol abuse presented to the hospital with complaints of abdominal pain that feel similar to her prior pancreatitis episodes. Lipase elevated on admission. Abdomen pelvic CT with probable pancreatitis and reactive duodenitis, Pancreatic head mass not excluded. Possibly merely changes of pancreatitis. Abdomen US showed no abnormal fluid collections identified in the region of the pancreas which is not clearly visualized. Patient placed on bowel rest, started on IV fluids and analgesics. Lipase returned to WNL. Patient pain continued to improve and was well controlled on oral analgesics. She was able to return to a low fat diet. Since the pancreatitis was likely related to alcohol consumption had an in depth conversation with patient about alcohol cessation. She is interested in stopping and resources were given per care coordination. During admission patient UA concerning for infection with associated dysuria and burning sensation. CT showed bladder wall thickening. Patient started on IV antibiotics. UCx obtained and is still pending. Given that the urine culture had not returned, had an in-depth conversation with patient in terms of discharge. Discussed with patient that if the urine culture comes back and shows resistance to the oral antibiotic that they were discharged on they will either receive a phone call and a new oral antibiotic will be sent to the pharmacy or they will have to come back to the hospital for IV antibiotics if no oral option is available. Patient stated understanding and was agreeable with discharge at this time. Patient transitioned to oral antibiotics to complete the course. Discharge order placed at 1350 with stable vital sings. Was not informed that patient became tachycardic into the 120s on afternoon vitals prior to patient being discharged. Attempted to have RN repeat vitals however patient was already gone. Throughout admission patient denied any chest pain or palpitations. Patient no complaints at time of discharge denying chest pain, shortness a breath, palpitations, nausea vomiting, and abdominal pain. Patient discharged home in stable condition. She is to follow up with her primary care provider in 1 week. Status at Discharge Functional status at discharge: independent ambulation Time Spent with Patient Time attestation: Total time spent providing and/or coordinating discharge services: Time spent: Greater than 30 minutes Exam Narrative: AF HR 71 RR 18 SpO2 98 BP 94/62 General: female in no acute respiratory distress who is nontoxic appearing, sitting up in bed. HEENT: Normocephalic. Atraumatic. Extraocular movement intact. Sclera clear and anicteric. No facial asymmetry. Chest: Lungs are clear to auscultation bilaterally. No wheezes or crackles. CV: Heart was regular rate and rhythm. Abd: Abdomen was soft. Very slight tenderness to epigastric region. Nondistended. Positive bowel sounds. Ext: No clubbing, cyanosis, or edema. DP pulses bilaterally. Neuro: Patient is alert. Speech is clear. DS: Data Data Completed and Pending Completed studies during hospitalization: abdomen/pelvis ct abdomen us Labs on day of discharge: Labs from last 24 hours 06/03/25 06/03/25 06/03/25 06:00 05:36 00:25 WBC 6.0 RBC 3.30 L Hgb 11.2 L Hct 33.1 L MCV 100.3 H MCH 33.9 MCHC 33.8 RDW 12.5 Plt Count 136 L MPV 10.2 % Immature Plt Fraction 4.5 Sodium 136 L Potassium 3.5 Chloride 102 Carbon Dioxide 27 Anion Gap 7 BUN 3 L Creatinine 0.39 L Estim Creat Clear Calc 147 Estimated GFR > 60 Glucose 102 POC Capillary Glucose 115 H 107 H Calcium 9.0 Total Bilirubin 1.8 H AST 116 H ALT 75 H Alkaline Phosphatase 90 Total Protein 7.4 Albumin 3.9 06/02/25 17:09 WBC RBC Hgb Hct MCV MCH MCHC RDW Plt Count MPV % Immature Plt Fraction Sodium Potassium Chloride Carbon Dioxide Anion Gap BUN Creatinine Estim Creat Clear Calc Estimated GFR Glucose POC Capillary Glucose 100 Calcium Total Bilirubin AST ALT Alkaline Phosphatase Total Protein Albumin Preliminary micro results at discharge 06/01/25 08:26 - Preliminary Urine Clean Catch Discharge Plan Discharge Attending physician on discharge: Fay Cortes Consulting providers: Kirill Mahoney; Debra Nur Discharging Clinician: Debra Nur Anticipated Discharge Date/Time: 06/03/25 13:04 Patient Disposition: Home Activity: as tolerated Diet: as tolerated and low fat Discharge Instructions: Discharge disposition: Patient admitted to the hospital for pancreatitis likely induced to alcohol consumption Strongly encourage alcohol cessation Continue a low fat diet [place] as needed for break through pain, attached is information on this medication Do not drive or operate heavy machinery on the norco medication Attached is information on this medication Diagnosed with a UTI Take all medications as prescribed even if feeling better Augmentin twice a day Attached is information on this medication Your urine culture has not returned: If the urine culture comes back and shows resistance to the oral antibiotic that you were discharged on you will either receive a phone call and a new oral antibiotic will be sent to the pharmacy or you will have to come back to the hospital for IV antibiotics if no oral option is available. Eat well balanced meals and stay hydrated Keep active to remain strong Good ariel Care every 2 hours Trend urine output Take caution while standing, rising, or moving Change positions slowly taking a break between each position change If you standing feel dizzy sit back down and take a break Encouraged to continue with yearly vaccinations Return to the emergency department if he developed sudden shortness of breath, chest pain, nausea, vomiting, upset stomach or intractable diarrhea Return to the emergency department if you develop fever greater than 100.5 Follow-up with the primary care physician within 1-2 weeks Thank you for choosing [facility] for your healthcare needs Patient Instructions: Antibiotic Form, Hydrocodone/Acetaminophen (By mouth), Amoxicillin/Clavulanate Potassium (By mouth), Pancreatitis (DC), Urinary Tract Infection in Women (DC) Patient Language: German Stand Alone Forms: General Discharge Information Follow-up/Referrals: Kirill Mahoney MD [Physician, Family Practice] - 1 Week Discharge Medications: New hydrocodone-acetaminophen 5-325 mg Tablet 1 tablet PO Q4H PRN (Reason: Pain Rated 4-6) Qty: 5 0RF thiamine HCl (vitamin B1) [Vitamin B-1] 100 mg Tablet 100 mg PO DAILY Qty: 30 0RF folic acid 1 mg Tablet 1 mg PO DAILY Qty: 30 0RF amoxicillin-pot clavulanate 875-125 mg tablet 1 tablet PO Q12H Qty: 10 0RF Date of admission: 06/01/25 12:00 Primary Care Provider: PHYSICIAN,DIRECTOR OF PATIENT FINANCIAL SERVICES Admitting Provider: Fay Cortes Attending physician on admission: Fay Cortes Condition: Stable Hospitalist MIPS Heart Failure (Exclusion) Patient has history of Heart Transplant or Left Ventricular Assistive Device?: No IF YES, STOP HERE Heart Failure (Qualifier) Patient has current or prior documentation of LVEF less than or equal to 40%, or mod/servere depressed LVSF?: No IF NO, STOP HERE
[2025-06-03 14:00] VITALS: BP 100/64; PULSE 124; RESP 22; TEMP 35.8; O2SAT 98
--- NOTE | 2025-06-07 09:38 | PC.NURSE ---
Urine cx growing E. coli and Klebsiella pneumonia. Both are sensitive to Amox-clav. whish is what pt dc on.
== END 2025-06-03 15:10 | disposition home or self-care (01) ==
LOC: ANHED 11:59 → ANH3MEDSUR 12:42
PROVIDERS: Nurse Practitioner Adult Health; Student in an Organized Health Care Education/Training Program; Admitting Provider Internal Medicine; Emergency Provider Student in an Organized Health Care Education/Training Program; Visit Provider Internal Medicine
DX: K85.20 Alcohol induced acute pancreatitis without necrosis or infection (principal); F10.10 Alcohol abuse, uncomplicated; N30.00 Acute cystitis without hematuria; K76.0 Fatty (change of) liver, not elsewhere classified; K29.80 Duodenitis without bleeding
CPT/HCPCS: 36415; 74177; 76705; 80053; 80143; 80307; 81001; 81025; 82077; 82248; 82948; 83690; 83735; 84100; 85025; 85027; 85055; 85610; 85730; 87086; 87186; 96361; 96365; 96374; 96375; 96376; 99285; A9270; G0378; G0379; J0696; J1171; J2270; J2405; J2470; J2765; J7030; J7120; Q9967